=== PATIENT | male | born 1960 | race Caucasian/White ===

== ENCOUNTER 2018-02-11 09:04 | Inpatient (IN) | payer BC ==
[2018-02-11 09:24] LABS: ADD MAN DIFF? NO
[2018-02-11 09:35] LABS: WHITE BLOOD COUNT 13.6 10^3/ul (4.8-10.8)
[2018-02-11 09:35] LABS: ABNORMAL IP MESSAGE 1; HEMATOCRIT 16.7 % (42.0-52.0); MEAN CORPUSCULAR HEMOGLOBIN 29.4 pg (29.0-33.0); MEAN CORPUSCULAR HGB CONC 31.7 g/dl (32.0-37.0); MEAN CORPUSCULAR VOLUME 92.8 fl (82.0-101.0); MEAN PLATELET VOLUME 10.9 fl (7.4-10.4); PLATELET COUNT 80 10^3/UL (140-415); POSITIVE DIFF @See below
[2018-02-11] MEDS: SOD CHLORIDE 0.9% 1,000 ML IV (09:40)
[2018-02-11 09:47] LABS: HEMOGLOBIN 5.3 g/dl (14.0-18.0)
[2018-02-11 09:51] LABS: ALANINE AMINOTRANSFERASE 36 IU/L (13-69); ALBUMIN 2.5 g/dl (3.3-4.9); ALKALINE PHOSPHATASE 52 IU/L (42-121); ANION GAP 9 (8-16); ASPARTATE AMINO TRANSFERASE 24 IU/L (15-46); BILIRUBIN,INDIRECT 0.3 mg/dl (0-1.1); BILIRUBIN,TOTAL 0.3 mg/dl (0.2-1.3); BLOOD UREA NITROGEN 29 mg/dl (7-20); CALCIUM 7.4 mg/dl (8.4-10.2); CARBON DIOXIDE 25 mmol/L (21-31); CHLORIDE 101 mmol/L (97-110); CREATININE 0.86 mg/dl (0.61-1.24); GLUCOSE 115 mg/dl (70-220); POTASSIUM 4.1 mmol/L (3.5-5.1); SODIUM 131 mmol/L (135-144)
[2018-02-11 09:56] LABS: INR 3.78; PROTIME 38.5 Sec (11.9-14.9)
[2018-02-11] MEDS: SOD CHLORIDE 0.9% 250 ML IV (09:58)
[2018-02-11 10:03] LABS: B-TYPE NATRIURETIC PEPTIDE 492 PG/ML (0-125)
[2018-02-11 10:06] LABS: TROPONIN-I 0.169 ng/ml (0.000-0.120)
[2018-02-11 10:58] LABS: ANISOCYTOSIS 1+ (0-0); BAND NEUTROPHILS #M 0.2 10^3/ul (0.0-0.6); BAND NEUTROPHILS % (M) 2 % (0-4); BASOPHIL #M 0.1 10^3/ul (0.0-0.0); BASOPHILS % (M) 1 % (0-2); EOSINOPHILS % (M) 2 % (0-7); LYMPHOCYTES #M 0.1 10^3/ul (0.8-2.9); LYMPHOCYTES % (M) 1 % (15-51); MICROCYTOSIS 1+ (0-0); PLATELET ESTIMATE DECREASED; POIKILOCYTOSIS 1+ (0-0); POLYCHROMASIA 3+ (0-0); SEG NEUT #M 12.8 10^3/ul (1.6-7.5); SEGMENTED NEUTROPHILS (M) % 94 % (39-77); SMUDGE%M 5 % (0-0)
[2018-02-11] MEDS ORDERED: ACETAMINOPHEN 325 MG TAB PO (11:00)
[2018-02-11] MEDS ORDERED: ONDANSETRON 4 MG INJ IV (11:00)
[2018-02-11 12:27] LABS: ADD UMIC YES; UR ASCORBIC ACID NEGATIVE (NEGATIVE); UR BILIRUBIN (Dip) NEGATIVE (NEGATIVE); UR BLOOD (Dip) NEGATIVE (NEGATIVE); UR CLARITY CLEAR (CLEAR); UR COLOR YELLOW (YELLOW); UR GLUCOSE (Dip) NEGATIVE (NEGATIVE); UR KETONES (Dip) NEGATIVE (NEGATIVE); UR LEUKOCYTE ESTERASE (Dip) TRACE Leu/ul (NEGATIVE); UR NITRITE (Dip) NEGATIVE (NEGATIVE); UR RBC 0 /HPF (0-5); UR SPECIFIC GRAVITY (Dip) 1.016 (1.003-1.030); UR TOTAL PROTEIN (Dip) NEGATIVE (NEGATIVE); UR UROBILINOGEN (Dip) NEGATIVE (NEGATIVE); UR WBC 7 /HPF (0-5)
[2018-02-11] MEDS: D5W-0.45 NACL + KCL 20 MEQ 1,000 ML IV ×2 (14:30→20:15)
[2018-02-11] MEDS: PANTOPRAZOLE 40 MG INJ IV (17:00)
[2018-02-11 20:07] LABS: WHITE BLOOD COUNT 11.1 10^3/ul (4.8-10.8)
[2018-02-11 20:07] LABS: ABNORMAL IP MESSAGE 1; HEMATOCRIT 18.8 % (42.0-52.0); MEAN CORPUSCULAR HEMOGLOBIN 29.7 pg (29.0-33.0); MEAN CORPUSCULAR HGB CONC 33.5 g/dl (32.0-37.0); MEAN CORPUSCULAR VOLUME 88.7 fl (82.0-101.0); MEAN PLATELET VOLUME 12.1 fl (7.4-10.4); PLATELET COUNT 74 10^3/UL (140-415); POSITIVE DIFF @See below; RED BLOOD COUNT 2.12 10^6/ul (4.70-6.10); RED CELL DISTRIBUTION WIDTH 15.5 % (11.5-14.5)
[2018-02-11 20:16] LABS: ADD MAN DIFF? YES; HEMOGLOBIN 6.3 g/dl (14.0-18.0)
[2018-02-11 20:37] LABS: TROPONIN-I 0.122 ng/ml (0.000-0.120)
[2018-02-11 21:35] LABS: BURR CELLS 1+; EOSINOPHILS # 0.1 10^3/ul (0.0-0.5); EOSINOPHILS % (M) 1 % (0.0-7.0); HYPOCHROMASIA 1+ (0-0); LYMPHOCYTES # 0.4 10^3/ul (0.8-2.9); LYMPHOCYTES #M 0.4 10^3/ul (0.8-2.9); LYMPHOCYTES % (M) 4 % (15-51); MONOCYTE # 0.4 10^3/ul (0.3-0.9); MONOCYTE #M 0.4 10^3/ul (0.3-0.9); MONOCYTES % (M) 4 % (0-11); SEGMENTED NEUTROPHILS (M) % 91 % (39-77)
[2018-02-12 01:27] LABS: TROPONIN-I 0.088 ng/ml (0.000-0.120)
[2018-02-12] MEDS: PANTOPRAZOLE 40 MG INJ IV (05:44)
[2018-02-12 06:49] LABS: ADD MAN DIFF? NO
[2018-02-12 06:55] LABS: ABNORMAL IP MESSAGE 1; BASOPHIL # 0.1 10^3/ul (0.0-0.1); BASOPHILS % 0.5 % (0.0-2.0); EOSINOPHILS # 0.2 10^3/ul (0.0-0.5); EOSINOPHILS % 1.8 % (0.0-7.0); LYMPHOCYTES # 0.4 10^3/ul (0.8-2.9); LYMPHOCYTES % 4.4 % (15.0-51.0); MEAN CORPUSCULAR HEMOGLOBIN 29.8 pg (29.0-33.0); MEAN CORPUSCULAR HGB CONC 33.3 g/dl (32.0-37.0); MEAN CORPUSCULAR VOLUME 89.4 fl (82.0-101.0); MEAN PLATELET VOLUME 11.9 fl (7.4-10.4); MONOCYTE # 0.9 10^3/ul (0.3-0.9); MONOCYTES % 9.6 % (0.0-11.0); NEUTROPHIL # 7.6 10^3/ul (1.6-7.5); NEUTROPHILS % 83.2 % (39.0-77.0); PLATELET COUNT 63 10^3/UL (140-415); POSITIVE DIFF @See below; RED BLOOD COUNT 2.35 10^6/ul (4.70-6.10); RED CELL DISTRIBUTION WIDTH 15.5 % (11.5-14.5)
[2018-02-12 06:55] LABS: WHITE BLOOD COUNT 9.1 10^3/ul (4.8-10.8)
[2018-02-12 07:36] LABS: INR 4.59; PT RATIO 3.5
[2018-02-12 07:41] LABS: TROPONIN-I 0.066 ng/ml (0.000-0.120)
[2018-02-12 07:52] LABS: ANION GAP 10 (8-16); BLOOD UREA NITROGEN 31 mg/dl (7-20); CALCIUM 7.5 mg/dl (8.4-10.2); CARBON DIOXIDE 23 mmol/L (21-31); CHLORIDE 105 mmol/L (97-110); CREATININE 0.74 mg/dl (0.61-1.24); GLUCOSE 101 mg/dl (70-220); PARTIAL THROMBOPLASTIN TIME 94.9 Sec (25.0-35.0); POTASSIUM 4.3 mmol/L (3.5-5.1); SODIUM 134 mmol/L (135-144)
[2018-02-12] MEDS: D5W-0.45 NACL + KCL 20 MEQ 1,000 ML IV ×2 (09:46→20:30)
[2018-02-12] MEDS ORDERED: PHYTONADIONE 10 MG/ML INJ SC (18:30)
[2018-02-12 20:22] LABS: HEMATOCRIT 20.7 % (42.0-52.0)
[2018-02-12 20:31] LABS: IMMEDIATE SPIN CROSSMATCH 1 9
[2018-02-13 01:11] LABS: IMMEDIATE SPIN CROSSMATCH 1
[2018-02-13] MEDS: PANTOPRAZOLE 40 MG INJ IV (06:00)
[2018-02-13] MEDS: D5W-0.45 NACL + KCL 20 MEQ 1,000 ML IV ×2 (06:01→16:30)
[2018-02-13 06:52] LABS: ADD MAN DIFF? NO
[2018-02-13 07:06] LABS: ABNORMAL IP MESSAGE 1; BASOPHILS % 0.4 % (0.0-2.0); EOSINOPHILS # 0.2 10^3/ul (0.0-0.5); EOSINOPHILS % 2.1 % (0.0-7.0); HEMATOCRIT 19.4 % (42.0-52.0); LYMPHOCYTES # 0.4 10^3/ul (0.8-2.9); LYMPHOCYTES % 5.3 % (15.0-51.0); MEAN CORPUSCULAR HEMOGLOBIN 30.2 pg (29.0-33.0); MEAN CORPUSCULAR VOLUME 91.5 fl (82.0-101.0); MEAN PLATELET VOLUME 12.4 fl (7.4-10.4); MONOCYTE # 0.8 10^3/ul (0.3-0.9); MONOCYTES % 11.9 % (0.0-11.0); NEUTROPHIL # 5.6 10^3/ul (1.6-7.5); NEUTROPHILS % 79.9 % (39.0-77.0); PLATELET COUNT 56 10^3/UL (140-415); POSITIVE DIFF @See below; RED BLOOD COUNT 2.12 10^6/ul (4.70-6.10); RED CELL DISTRIBUTION WIDTH 15.5 % (11.5-14.5)
[2018-02-13 07:17] LABS: INR 1.62; PROTIME 19.6 Sec (11.9-14.9); PT RATIO 1.5
[2018-02-13 07:19] LABS: HEMOGLOBIN 6.4 g/dl (14.0-18.0); PARTIAL THROMBOPLASTIN TIME 52.2 Sec (25.0-35.0); PATH REVIEW? YES
[2018-02-13 07:53] LABS: ANION GAP 9 (8-16); BLOOD UREA NITROGEN 27 mg/dl (7-20); CALCIUM 7.6 mg/dl (8.4-10.2); CARBON DIOXIDE 27 mmol/L (21-31); CHLORIDE 104 mmol/L (97-110); CREATININE 0.78 mg/dl (0.61-1.24); GLUCOSE 91 mg/dl (70-220); POTASSIUM 3.8 mmol/L (3.5-5.1); SODIUM 136 mmol/L (135-144)
[2018-02-13 09:21] LABS: ANISOCYTOSIS 1+ (0-0); BAND NEUTROPHILS #M 0.3 10^3/ul (0.0-0.6); BAND NEUTROPHILS % (M) 5 % (0-4); BASOPHILS % (M) 1 % (0-2); EOSINOPHILS % (M) 2 % (0-7); LYMPHOCYTES #M 0.3 10^3/ul (0.8-2.9); LYMPHOCYTES % (M) 5 % (15-51); MICROCYTOSIS 1+ (0-0); MONOCYTE #M 0.2 10^3/ul (0.3-0.9); MONOCYTES % (M) 4 % (0-11); PLATELET ESTIMATE SIG DECREASED; POLYCHROMASIA 1+ (0-0); SEG NEUT #M 5.8 10^3/ul (1.6-7.5); SEGMENTED NEUTROPHILS (M) % 83 % (39-77); SMUDGE%M 28 % (0-0); SPHEROCYTES 1+ (0-0)
[2018-02-13 15:38] LABS: HEMOGLOBIN 7.5 g/dl (14.0-18.0)
[2018-02-14] MEDS: D5W-0.45 NACL + KCL 20 MEQ 1,000 ML IV ×3 (02:17→21:48)
[2018-02-14] MEDS: PANTOPRAZOLE 40 MG INJ IV (06:19)
[2018-02-14 06:41] LABS: ADD MAN DIFF? NO
[2018-02-14 06:56] LABS: WHITE BLOOD COUNT 7.6 10^3/ul (4.8-10.8)
[2018-02-14 06:56] LABS: ABNORMAL IP MESSAGE 1; BASOPHIL # 0.1 10^3/ul (0.0-0.1); BASOPHILS % 0.8 % (0.0-2.0); EOSINOPHILS # 0.1 10^3/ul (0.0-0.5); EOSINOPHILS % 1.7 % (0.0-7.0); HEMATOCRIT 17.8 % (42.0-52.0); LYMPHOCYTES # 0.4 10^3/ul (0.8-2.9); MEAN CORPUSCULAR HEMOGLOBIN 29.9 pg (29.0-33.0); MEAN CORPUSCULAR HGB CONC 32.6 g/dl (32.0-37.0); MEAN CORPUSCULAR VOLUME 91.8 fl (82.0-101.0); MEAN PLATELET VOLUME 11.9 fl (7.4-10.4); MONOCYTE # 0.9 10^3/ul (0.3-0.9); MONOCYTES % 12.3 % (0.0-11.0); NEUTROPHILS % 79.5 % (39.0-77.0); PLATELET COUNT 61 10^3/UL (140-415); POSITIVE DIFF @See below; RED BLOOD COUNT 1.94 10^6/ul (4.70-6.10); RED CELL DISTRIBUTION WIDTH 15.6 % (11.5-14.5)
[2018-02-14 07:06] LABS: HEMOGLOBIN 5.8 g/dl (14.0-18.0); INR 2.09; PT RATIO 1.9
[2018-02-14 07:07] LABS: PARTIAL THROMBOPLASTIN TIME 54.8 Sec (25.0-35.0)
[2018-02-14 07:17] LABS: ANION GAP 8 (8-16); BLOOD UREA NITROGEN 32 mg/dl (7-20); CALCIUM 7.3 mg/dl (8.4-10.2); CARBON DIOXIDE 24 mmol/L (21-31); CHLORIDE 109 mmol/L (97-110); CREATININE 0.67 mg/dl (0.61-1.24); GLUCOSE 100 mg/dl (70-220); POTASSIUM 3.7 mmol/L (3.5-5.1); SODIUM 137 mmol/L (135-144)
[2018-02-14] MEDS ORDERED: ACETAMINOPHEN 650 MG SUPP PR (07:30)
[2018-02-14 08:26] LABS: ALANINE AMINOTRANSFERASE 26 IU/L (13-69); ALBUMIN 2.1 g/dl (3.3-4.9); ALKALINE PHOSPHATASE 40 IU/L (42-121); ASPARTATE AMINO TRANSFERASE 21 IU/L (15-46); BILIRUBIN,INDIRECT 0.3 mg/dl (0-1.1); BILIRUBIN,TOTAL 0.3 mg/dl (0.2-1.3); TOTAL PROTEIN 4.7 g/dl (6.1-8.1)
[2018-02-14 08:27] LABS: AMYLASE < 30 U/L (11-123)
[2018-02-14] MEDS: morphine 2 MG INJ IV ×2 (11:51→22:28)
[2018-02-14 20:29] LABS: ADD UMIC NO; UR ASCORBIC ACID NEGATIVE (NEGATIVE); UR BILIRUBIN (Dip) NEGATIVE (NEGATIVE); UR BLOOD (Dip) NEGATIVE (NEGATIVE); UR CLARITY CLEAR (CLEAR); UR COLOR YELLOW (YELLOW); UR GLUCOSE (Dip) NEGATIVE (NEGATIVE); UR KETONES (Dip) NEGATIVE (NEGATIVE); UR LEUKOCYTE ESTERASE (Dip) NEGATIVE Leu/ul (NEGATIVE); UR NITRITE (Dip) NEGATIVE (NEGATIVE); UR SPECIFIC GRAVITY (Dip) 1.021 (1.003-1.030); UR TOTAL PROTEIN (Dip) NEGATIVE (NEGATIVE); UR UROBILINOGEN (Dip) 1+ mg/dL (NEGATIVE)
[2018-02-14] MEDS: ZOLPIDEM 5 MG TAB PO (22:28)
[2018-02-15] MEDS: morphine 2 MG INJ IV ×2 (03:03→10:05)
[2018-02-15] MEDS: PANTOPRAZOLE 40 MG INJ IV ×2 (06:30→06:36)
[2018-02-15] MEDS: D5W-0.45 NACL + KCL 20 MEQ 1,000 ML IV ×2 (06:40→18:30)
[2018-02-15 06:55] LABS: ADD MAN DIFF? NO
[2018-02-15 07:00] LABS: ABNORMAL IP MESSAGE 1; BASOPHIL # 0.1 10^3/ul (0.0-0.1); BASOPHILS % 0.7 % (0.0-2.0); EOSINOPHILS % 0.2 % (0.0-7.0); HEMATOCRIT 21.8 % (42.0-52.0); HEMOGLOBIN 7.1 g/dl (14.0-18.0); LYMPHOCYTES # 0.4 10^3/ul (0.8-2.9); LYMPHOCYTES % 3.1 % (15.0-51.0); MEAN CORPUSCULAR HEMOGLOBIN 30.3 pg (29.0-33.0); MEAN CORPUSCULAR HGB CONC 32.6 g/dl (32.0-37.0); MEAN CORPUSCULAR VOLUME 93.2 fl (82.0-101.0); MEAN PLATELET VOLUME 11.9 fl (7.4-10.4); MONOCYTES % 9.1 % (0.0-11.0); NEUTROPHIL # 9.7 10^3/ul (1.6-7.5); NEUTROPHILS % 86.1 % (39.0-77.0); PLATELET COUNT 43 10^3/UL (140-415); POSITIVE DIFF @See below; RED BLOOD COUNT 2.34 10^6/ul (4.70-6.10); RED CELL DISTRIBUTION WIDTH 16.3 % (11.5-14.5)
[2018-02-15 07:00] LABS: WHITE BLOOD COUNT 11.2 10^3/ul (4.8-10.8)
[2018-02-15 07:19] LABS: INR 2.71; PROTIME 29.5 Sec (11.9-14.9); PT RATIO 2.3
[2018-02-15 07:21] LABS: PARTIAL THROMBOPLASTIN TIME 64.8 Sec (25.0-35.0)
[2018-02-15 07:28] LABS: ANION GAP 11 (8-16); BLOOD UREA NITROGEN 29 mg/dl (7-20); CALCIUM 7.4 mg/dl (8.4-10.2); CARBON DIOXIDE 22 mmol/L (21-31); CHLORIDE 108 mmol/L (97-110); CREATININE 0.68 mg/dl (0.61-1.24); GLUCOSE 132 mg/dl (70-220); POTASSIUM 3.9 mmol/L (3.5-5.1); SODIUM 137 mmol/L (135-144)
[2018-02-15] MEDS: PHYTONADIONE 5 MG in DEXTROSE 5% 50 ML IVPB (09:57)
[2018-02-15 13:09] LABS: IMMEDIATE SPIN CROSSMATCH 1 4
[2018-02-15] MEDS ORDERED: PHYTONADIONE 10 MG/ML INJ SC (15:30)
[2018-02-15] MEDS ORDERED: ACETAMINOPHEN 325 MG TAB PO (22:00)
[2018-02-15] MEDS: ZOLPIDEM 5 MG TAB PO ×2 (22:19→23:46)
[2018-02-15] MEDS: HYDROCODONE/APAP (5/325) TAB PO (22:20)
[2018-02-15 23:16] LABS: IMMEDIATE SPIN CROSSMATCH 1
[2018-02-16] MEDS: D5W-0.45 NACL + KCL 20 MEQ 1,000 ML IV ×3 (02:15→20:27)
[2018-02-16 06:11] LABS: ADD MAN DIFF? NO
[2018-02-16 06:19] LABS: ABNORMAL IP MESSAGE 1; BASOPHIL # 0.1 10^3/ul (0.0-0.1); BASOPHILS % 0.6 % (0.0-2.0); EOSINOPHILS # 0.1 10^3/ul (0.0-0.5); EOSINOPHILS % 0.6 % (0.0-7.0); HEMATOCRIT 19.4 % (42.0-52.0); LYMPHOCYTES # 0.5 10^3/ul (0.8-2.9); LYMPHOCYTES % 4.9 % (15.0-51.0); MEAN CORPUSCULAR HEMOGLOBIN 29.7 pg (29.0-33.0); MEAN CORPUSCULAR HGB CONC 32.5 g/dl (32.0-37.0); MEAN CORPUSCULAR VOLUME 91.5 fl (82.0-101.0); MEAN PLATELET VOLUME 11.8 fl (7.4-10.4); MONOCYTE # 1.1 10^3/ul (0.3-0.9); MONOCYTES % 11.2 % (0.0-11.0); NEUTROPHIL # 7.7 10^3/ul (1.6-7.5); NEUTROPHILS % 81.6 % (39.0-77.0); NUCLEATED RED BLOOD CELLS% 0.2 /100WBC (0.0-0.0); POSITIVE DIFF @See below; RED BLOOD COUNT 2.12 10^6/ul (4.70-6.10); RED CELL DISTRIBUTION WIDTH 16.5 % (11.5-14.5)
[2018-02-16 06:19] LABS: WHITE BLOOD COUNT 9.4 10^3/ul (4.8-10.8)
[2018-02-16 06:37] LABS: INR 1.43; PROTIME 17.7 Sec (11.9-14.9); PT RATIO 1.4
[2018-02-16 06:47] LABS: HEMOGLOBIN 6.3 g/dl (14.0-18.0)
[2018-02-16 06:48] LABS: PLATELET COUNT 29 10^3/UL (140-415)
[2018-02-16 06:49] LABS: ANION GAP 11 (8-16); BLOOD UREA NITROGEN 32 mg/dl (7-20); CALCIUM 7.3 mg/dl (8.4-10.2); CARBON DIOXIDE 21 mmol/L (21-31); CHLORIDE 108 mmol/L (97-110); CREATININE 0.72 mg/dl (0.61-1.24); GLUCOSE 119 mg/dl (70-220); SODIUM 136 mmol/L (135-144)
[2018-02-16] MEDS: SOD CHLORIDE 0.9% 250 ML IV* (08:22)
[2018-02-16 09:34] LABS: ANISOCYTOSIS 1+ (0-0); BAND NEUTROPHILS #M 0.4 10^3/ul (0.0-0.6); BAND NEUTROPHILS % (M) 5 % (0-4); GIANT THROMBO% (M) 1 % (0-0); LYMPHOCYTES % (M) 1 % (15-51); MICROCYTOSIS 1+ (0-0); MONOCYTE #M 0.8 10^3/ul (0.3-0.9); MONOCYTES % (M) 9 % (0-11); MYELOCYTES #M 0.1 10^3/ul (0.0-0.0); MYELOCYTES % (M) 2 % (0-0); PLATELET ESTIMATE SIG DECREASED; POLYCHROMASIA 2+ (0-0); SEG NEUT #M 7.8 10^3/ul (1.6-7.5); SEGMENTED NEUTROPHILS (M) % 83 % (39-77); SMUDGE%M 3 % (0-0)
[2018-02-16] MEDS: ZOLPIDEM 5 MG TAB PO (20:26)
[2018-02-17] MEDS: HYDROCODONE/APAP (5/325) TAB PO (00:39)
[2018-02-17] MEDS: PANTOPRAZOLE 40 MG INJ IV (05:55)
[2018-02-17 07:12] LABS: ADD MAN DIFF? NO
[2018-02-17 07:17] LABS: WHITE BLOOD COUNT 15.3 10^3/ul (4.8-10.8)
[2018-02-17 07:17] LABS: ABNORMAL IP MESSAGE 1; BASOPHIL # 0.1 10^3/ul (0.0-0.1); BASOPHILS % 0.5 % (0.0-2.0); EOSINOPHILS % 0.1 % (0.0-7.0); HEMATOCRIT 26.3 % (42.0-52.0); HEMOGLOBIN 8.7 g/dl (14.0-18.0); LYMPHOCYTES # 0.4 10^3/ul (0.8-2.9); LYMPHOCYTES % 2.4 % (15.0-51.0); MEAN CORPUSCULAR HEMOGLOBIN 29.9 pg (29.0-33.0); MEAN CORPUSCULAR HGB CONC 33.1 g/dl (32.0-37.0); MEAN CORPUSCULAR VOLUME 90.4 fl (82.0-101.0); MEAN PLATELET VOLUME 13.2 fl (7.4-10.4); MONOCYTE # 1.2 10^3/ul (0.3-0.9); MONOCYTES % 8.1 % (0.0-11.0); NEUTROPHIL # 13.5 10^3/ul (1.6-7.5); NUCLEATED RED BLOOD CELLS% 0.2 /100WBC (0.0-0.0); PLATELET COUNT 44 10^3/UL (140-415); POSITIVE DIFF @See below; RED BLOOD COUNT 2.91 10^6/ul (4.70-6.10); RED CELL DISTRIBUTION WIDTH 17.2 % (11.5-14.5)
[2018-02-17 07:30] LABS: INR 1.42; PROTIME 17.6 Sec (11.9-14.9); PT RATIO 1.4
[2018-02-17 07:31] LABS: PARTIAL THROMBOPLASTIN TIME 38.6 Sec (25.0-35.0)
[2018-02-17 08:01] LABS: ANION GAP 12 (8-16); BLOOD UREA NITROGEN 26 mg/dl (7-20); CALCIUM 7.3 mg/dl (8.4-10.2); CARBON DIOXIDE 22 mmol/L (21-31); CHLORIDE 105 mmol/L (97-110); GLUCOSE 137 mg/dl (70-220); POTASSIUM 3.9 mmol/L (3.5-5.1); SODIUM 135 mmol/L (135-144)
[2018-02-17] MEDS: D5W-0.45 NACL + KCL 20 MEQ 1,000 ML IV ×3 (08:28→19:48)
[2018-02-17 12:38] LABS: FOLATE 12.8 ng/ml (2.8-20.0)
[2018-02-17] MEDS ORDERED: VANCOMYCIN IV PER PHARMACY XX (15:00)
[2018-02-17] MEDS: SOD CHLORIDE 0.9% 500 ML IV ×2 (15:16→17:43)
[2018-02-17] MEDS: CEFTRIAXONE 1 GM/50 ML (PMX) 50 ML IVPB (17:15)
[2018-02-17] MEDS ORDERED: VANCOMYCIN 1 GM (PMX) 250 ML IVPB (18:00)
[2018-02-17] MEDS: VANCOMYCIN 1.25 GM in SOD CHLORIDE 0.9% 250 ML IVPB (18:43)
[2018-02-17] MEDS: ZOLPIDEM 5 MG TAB PO ×2 (20:20→20:54)
[2018-02-17 22:46] LABS: ADD UMIC YES; UR ASCORBIC ACID NEGATIVE (NEGATIVE); UR BACTERIA FEW /HPF (NONE SEEN); UR BILIRUBIN (Dip) NEGATIVE (NEGATIVE); UR BLOOD (Dip) 1+ mg/dL (NEGATIVE); UR CLARITY SLIGHTLY CLOUDY (CLEAR); UR COLOR YELLOW (YELLOW); UR GLUCOSE (Dip) NEGATIVE (NEGATIVE); UR KETONES (Dip) NEGATIVE (NEGATIVE); UR LEUKOCYTE ESTERASE (Dip) NEGATIVE Leu/ul (NEGATIVE); UR NITRITE (Dip) NEGATIVE (NEGATIVE); UR RBC 1 /HPF (0-5); UR SPECIFIC GRAVITY (Dip) 1.014 (1.003-1.030); UR TOTAL PROTEIN (Dip) NEGATIVE (NEGATIVE); UR UROBILINOGEN (Dip) NEGATIVE (NEGATIVE); UR WBC 1 /HPF (0-5)
[2018-02-18] MEDS: VANCOMYCIN 1 GM 250 ML IVPB ×3 (03:59→16:01)
[2018-02-18] MEDS: PANTOPRAZOLE 40 MG INJ IV (06:07)
[2018-02-18] MEDS: D5W-0.45 NACL + KCL 20 MEQ 1,000 ML IV ×2 (06:30→16:01)
[2018-02-18 08:09] LABS: ADD MAN DIFF? NO
[2018-02-18 08:13] LABS: ABNORMAL IP MESSAGE 1; BASOPHIL # 0.1 10^3/ul (0.0-0.1); BASOPHILS % 0.6 % (0.0-2.0); EOSINOPHILS # 0.1 10^3/ul (0.0-0.5); EOSINOPHILS % 0.7 % (0.0-7.0); HEMATOCRIT 23.6 % (42.0-52.0); HEMOGLOBIN 7.7 g/dl (14.0-18.0); LYMPHOCYTES # 0.4 10^3/ul (0.8-2.9); MEAN CORPUSCULAR HEMOGLOBIN 29.6 pg (29.0-33.0); MEAN CORPUSCULAR HGB CONC 32.6 g/dl (32.0-37.0); MEAN CORPUSCULAR VOLUME 90.8 fl (82.0-101.0); MEAN PLATELET VOLUME 12.3 fl (7.4-10.4); MONOCYTES % 5.5 % (0.0-11.0); NEUTROPHIL # 15.8 10^3/ul (1.6-7.5); NEUTROPHILS % 90.4 % (39.0-77.0); NUCLEATED RED BLOOD CELLS% 0.1 /100WBC (0.0-0.0); POSITIVE DIFF @See below; RED CELL DISTRIBUTION WIDTH 17.2 % (11.5-14.5)
[2018-02-18 08:13] LABS: WHITE BLOOD COUNT 17.5 10^3/ul (4.8-10.8)
[2018-02-18 08:18] LABS: PLATELET COUNT 33 10^3/UL (140-415)
[2018-02-18 08:28] LABS: LACTIC ACID 1.9 mmol/L (0.5-2.0)
[2018-02-18 08:30] LABS: ALANINE AMINOTRANSFERASE 21 IU/L (13-69); ALBUMIN 2.1 g/dl (3.3-4.9); ALBUMIN/GLOBULIN RATIO 0.77; ALKALINE PHOSPHATASE 54 IU/L (42-121); ANION GAP 10 (8-16); ASPARTATE AMINO TRANSFERASE 22 IU/L (15-46); BILIRUBIN,INDIRECT 0.3 mg/dl (0-1.1); BILIRUBIN,TOTAL 0.3 mg/dl (0.2-1.3); BLOOD UREA NITROGEN 20 mg/dl (7-20); CALCIUM 7.1 mg/dl (8.4-10.2); CARBON DIOXIDE 20 mmol/L (21-31); CHLORIDE 104 mmol/L (97-110); CREATININE 0.68 mg/dl (0.61-1.24); GLUCOSE 126 mg/dl (70-220); SODIUM 130 mmol/L (135-144); TOTAL PROTEIN 4.8 g/dl (6.1-8.1)
[2018-02-18 08:31] LABS: INR 1.59; PROTIME 19.3 Sec (11.9-14.9); PT RATIO 1.5
[2018-02-18 08:32] LABS: PARTIAL THROMBOPLASTIN TIME 44.9 Sec (25.0-35.0)
[2018-02-18 08:55] LABS: LACTATE DEHYDROGENASE 917 IU/L (313-618)
[2018-02-18] MEDS: HYDROCODONE/APAP (5/325) TAB PO ×2 (09:38→21:29)
[2018-02-18] MEDS: CEFTRIAXONE 1 GM/50 ML (PMX) 50 ML IVPB (14:48)
[2018-02-18] MEDS ORDERED: EPHEDrine SULFATE 50 MG/5 ML SYG IV (17:30)
[2018-02-18] MEDS ORDERED: METOCLOPRAMIDE 10 MG INJ IV (17:30)
[2018-02-18] MEDS ORDERED: HYDROmorphONE 1 MG/5 ML IV SYRINGE IV (17:30)
[2018-02-18] MEDS ORDERED: MIDAZOLAM 1 MG/ML 2 ML INJ IV (17:30)
[2018-02-18] MEDS ORDERED: LABETALOL HCL 20MG INJ IV (17:30)
[2018-02-18] MEDS ORDERED: MEPERIDINE 25 MG INJ IV (17:30)
[2018-02-18] MEDS ORDERED: DIPHENHYDRAMINE 50 MG INJ IV (17:30)
[2018-02-18] MEDS ORDERED: FENTAnyl 50 MCG/ML VIAL IV ×2 (17:30)
[2018-02-18] MEDS ORDERED: ONDANSETRON 4 MG INJ IV (17:30)
[2018-02-18] MEDS ORDERED: hydrALAzine 20 MG INJ IV (17:30)
[2018-02-18] MEDS: PROPOFOL 20 ML (19:52)
[2018-02-18] MEDS: LIDOCAINE 2% (SDV) 5 ML INJ (19:52)
[2018-02-18] MEDS: ZOLPIDEM 5 MG TAB PO (23:31)
[2018-02-19] MEDS: D5W-0.45 NACL + KCL 20 MEQ 1,000 ML IV ×4 (02:30→21:30)
[2018-02-19 04:01] LABS: ADD MAN DIFF? NO
[2018-02-19 04:10] LABS: WHITE BLOOD COUNT 10.2 10^3/ul (4.8-10.8)
[2018-02-19 04:10] LABS: ABNORMAL IP MESSAGE 1; BASOPHIL # 0.1 10^3/ul (0.0-0.1); BASOPHILS % 0.9 % (0.0-2.0); EOSINOPHILS # 0.3 10^3/ul (0.0-0.5); EOSINOPHILS % 3.3 % (0.0-7.0); HEMATOCRIT 17.7 % (42.0-52.0); LYMPHOCYTES # 0.3 10^3/ul (0.8-2.9); LYMPHOCYTES % 3.2 % (15.0-51.0); MEAN CORPUSCULAR HEMOGLOBIN 30.4 pg (29.0-33.0); MEAN CORPUSCULAR HGB CONC 32.8 g/dl (32.0-37.0); MEAN CORPUSCULAR VOLUME 92.7 fl (82.0-101.0); MEAN PLATELET VOLUME 13.8 fl (7.4-10.4); MONOCYTE # 0.5 10^3/ul (0.3-0.9); MONOCYTES % 4.6 % (0.0-11.0); NEUTROPHIL # 8.9 10^3/ul (1.6-7.5); NEUTROPHILS % 87.3 % (39.0-77.0); NUCLEATED RED BLOOD CELLS% 0.2 /100WBC (0.0-0.0); PLATELET COUNT 32 10^3/UL (140-415); POSITIVE DIFF @See below; RED BLOOD COUNT 1.91 10^6/ul (4.70-6.10); RED CELL DISTRIBUTION WIDTH 17.9 % (11.5-14.5)
[2018-02-19 04:19] LABS: HEMOGLOBIN 5.8 g/dl (14.0-18.0)
[2018-02-19 04:20] LABS: ANION GAP 4 (8-16); BLOOD UREA NITROGEN 15 mg/dl (7-20); CALCIUM 6.8 mg/dl (8.4-10.2); CARBON DIOXIDE 21 mmol/L (21-31); CHLORIDE 112 mmol/L (97-110); CREATININE 0.68 mg/dl (0.61-1.24); GLUCOSE 95 mg/dl (70-220); POTASSIUM 3.9 mmol/L (3.5-5.1); SODIUM 133 mmol/L (135-144)
[2018-02-19 04:24] LABS: VANCOMYCIN,TROUGH 11.7 ug/ml (10.0-20.0)
[2018-02-19] MEDS: SOD CHLORIDE 0.9% 250 ML IV* (04:53)
[2018-02-19] MEDS: PANTOPRAZOLE 40 MG INJ IV (05:10)
[2018-02-19] MEDS: HYDROCODONE/APAP (5/325) TAB PO (05:10)
[2018-02-19] MEDS: VANCOMYCIN 1 GM 250 ML IVPB (05:10)
[2018-02-19 08:51] LABS: IMMEDIATE SPIN CROSSMATCH 1 3
[2018-02-19 15:29] LABS: RHEUMATOID FACTOR NEGATIVE (NEGATIVE)
[2018-02-19 16:51] LABS: HAPTOGLOBIN 252 mg/dL (43-212)
[2018-02-19] MEDS: ZOLPIDEM 5 MG TAB PO (22:27)
[2018-02-20] MEDS: D5W-0.45 NACL + KCL 20 MEQ 1,000 ML IV ×4 (05:21→21:03)
[2018-02-20] MEDS: PANTOPRAZOLE 40 MG INJ IV (05:22)
[2018-02-20] MEDS: HYDROCODONE/APAP (5/325) TAB PO ×2 (06:03→22:48)
[2018-02-20 06:48] LABS: ADD MAN DIFF? NO
[2018-02-20 08:41] LABS: ABNORMAL IP MESSAGE 1; BASOPHIL # 0.1 10^3/ul (0.0-0.1); BASOPHILS % 0.5 % (0.0-2.0); EOSINOPHILS # 0.3 10^3/ul (0.0-0.5); EOSINOPHILS % 2.4 % (0.0-7.0); HEMATOCRIT 21.3 % (42.0-52.0); LYMPHOCYTES # 0.5 10^3/ul (0.8-2.9); LYMPHOCYTES % 4.1 % (15.0-51.0); MEAN CORPUSCULAR HEMOGLOBIN 30.4 pg (29.0-33.0); MEAN CORPUSCULAR HGB CONC 32.9 g/dl (32.0-37.0); MEAN CORPUSCULAR VOLUME 92.6 fl (82.0-101.0); MEAN PLATELET VOLUME 11.8 fl (7.4-10.4); MONOCYTE # 0.6 10^3/ul (0.3-0.9); MONOCYTES % 5.1 % (0.0-11.0); NEUTROPHIL # 10.2 10^3/ul (1.6-7.5); NEUTROPHILS % 87.3 % (39.0-77.0); NUCLEATED RED BLOOD CELLS% 0.2 /100WBC (0.0-0.0); POSITIVE DIFF @See below; RED CELL DISTRIBUTION WIDTH 16.4 % (11.5-14.5)
[2018-02-20 08:41] LABS: WHITE BLOOD COUNT 11.7 10^3/ul (4.8-10.8)
[2018-02-20 09:02] LABS: ANION GAP 7 (8-16); BLOOD UREA NITROGEN 13 mg/dl (7-20); CALCIUM 6.8 mg/dl (8.4-10.2); CARBON DIOXIDE 21 mmol/L (21-31); CHLORIDE 111 mmol/L (97-110); CREATININE 0.65 mg/dl (0.61-1.24); GLUCOSE 96 mg/dl (70-220); POTASSIUM 3.6 mmol/L (3.5-5.1); SODIUM 135 mmol/L (135-144)
[2018-02-20 09:03] LABS: PLATELET COUNT 29 10^3/UL (140-415)
[2018-02-20 09:04] LABS: INR 2.19; PROTIME 24.9 Sec (11.9-14.9)
[2018-02-20 09:05] LABS: PARTIAL THROMBOPLASTIN TIME 62.5 Sec (25.0-35.0); PT RATIO 1.9
[2018-02-20 11:07] LABS: TYPE AND SCREEN 1
[2018-02-20] MEDS ORDERED: ONDANSETRON 4 MG TAB PO (13:00)
[2018-02-20] MEDS: TAMSULOSIN (SR) 0.4 MG CAP PO (20:46)
[2018-02-20] MEDS: ZOLPIDEM 5 MG TAB PO (21:00)
[2018-02-21] MEDS: D5W-0.45 NACL + KCL 20 MEQ 1,000 ML IV ×4 (04:30→18:44)
[2018-02-21 07:44] LABS: ADD MAN DIFF? NO
[2018-02-21 07:46] LABS: WHITE BLOOD COUNT 12.7 10^3/ul (4.8-10.8)
[2018-02-21 07:46] LABS: ABNORMAL IP MESSAGE 1; BASOPHILS % 0.3 % (0.0-2.0); EOSINOPHILS # 0.3 10^3/ul (0.0-0.5); EOSINOPHILS % 2.5 % (0.0-7.0); HEMATOCRIT 27.1 % (42.0-52.0); HEMOGLOBIN 8.8 g/dl (14.0-18.0); LYMPHOCYTES # 0.5 10^3/ul (0.8-2.9); LYMPHOCYTES % 3.6 % (15.0-51.0); MEAN CORPUSCULAR HEMOGLOBIN 29.9 pg (29.0-33.0); MEAN CORPUSCULAR HGB CONC 32.5 g/dl (32.0-37.0); MEAN CORPUSCULAR VOLUME 92.2 fl (82.0-101.0); MEAN PLATELET VOLUME 12.2 fl (7.4-10.4); MONOCYTE # 0.6 10^3/ul (0.3-0.9); MONOCYTES % 4.8 % (0.0-11.0); NEUTROPHIL # 11.2 10^3/ul (1.6-7.5); NEUTROPHILS % 88.2 % (39.0-77.0); NUCLEATED RED BLOOD CELLS% 0.2 /100WBC (0.0-0.0); PLATELET COUNT 55 10^3/UL (140-415); POSITIVE DIFF @See below; RED BLOOD COUNT 2.94 10^6/ul (4.70-6.10); RED CELL DISTRIBUTION WIDTH 16.5 % (11.5-14.5)
[2018-02-21] MEDS: PANTOPRAZOLE SODIUM 20 MG TABEC PO (07:56)
[2018-02-21 08:05] LABS: INR 1.93; PROTIME 22.5 Sec (11.9-14.9); PT RATIO 1.8
[2018-02-21 08:28] LABS: ANION GAP 8 (8-16); BLOOD UREA NITROGEN 10 mg/dl (7-20); CALCIUM 7.2 mg/dl (8.4-10.2); CARBON DIOXIDE 23 mmol/L (21-31); CHLORIDE 109 mmol/L (97-110); CREATININE 0.63 mg/dl (0.61-1.24); GLUCOSE 96 mg/dl (70-220); POTASSIUM 4.1 mmol/L (3.5-5.1); SODIUM 136 mmol/L (135-144)
[2018-02-21] MEDS: FERROUS SULFATE (EC) 325 MG TAB PO (08:43)
[2018-02-21 08:56] LABS: PROCALCITONIN 0.93 ng/mL (<0.10)
[2018-02-21] MEDS: HYDROCODONE/APAP (5/325) TAB PO ×2 (10:20→20:28)
[2018-02-21] MEDS: TAMSULOSIN (SR) 0.4 MG CAP PO (20:28)
[2018-02-22] MEDS: D5W-0.45 NACL + KCL 20 MEQ 1,000 ML IV ×2 (05:09→17:58)
[2018-02-22] MEDS: METOPROLOL (XL) 25 MG TAB PO ×2 (05:39→05:50)
[2018-02-22 05:58] LABS: ADD MAN DIFF? NO
[2018-02-22 06:03] LABS: ABNORMAL IP MESSAGE 1; BASOPHILS % 0.3 % (0.0-2.0); EOSINOPHILS # 0.1 10^3/ul (0.0-0.5); EOSINOPHILS % 0.8 % (0.0-7.0); HEMOGLOBIN 8.2 g/dl (14.0-18.0); LYMPHOCYTES # 0.4 10^3/ul (0.8-2.9); LYMPHOCYTES % 3.6 % (15.0-51.0); MEAN CORPUSCULAR HEMOGLOBIN 29.6 pg (29.0-33.0); MEAN CORPUSCULAR HGB CONC 32.8 g/dl (32.0-37.0); MEAN CORPUSCULAR VOLUME 90.3 fl (82.0-101.0); MEAN PLATELET VOLUME 12.5 fl (7.4-10.4); MONOCYTE # 0.5 10^3/ul (0.3-0.9); MONOCYTES % 4.2 % (0.0-11.0); NEUTROPHIL # 10.2 10^3/ul (1.6-7.5); NEUTROPHILS % 90.4 % (39.0-77.0); PLATELET COUNT 56 10^3/UL (140-415); POSITIVE DIFF @See below; RED BLOOD COUNT 2.77 10^6/ul (4.70-6.10); RED CELL DISTRIBUTION WIDTH 16.3 % (11.5-14.5)
[2018-02-22 06:03] LABS: WHITE BLOOD COUNT 11.3 10^3/ul (4.8-10.8)
[2018-02-22 06:23] LABS: INR 1.98; PT RATIO 1.8
[2018-02-22 06:33] LABS: ANION GAP 8 (8-16); BLOOD UREA NITROGEN 10 mg/dl (7-20); CALCIUM 6.8 mg/dl (8.4-10.2); CARBON DIOXIDE 21 mmol/L (21-31); CHLORIDE 108 mmol/L (97-110); CREATININE 0.58 mg/dl (0.61-1.24); GLUCOSE 111 mg/dl (70-220); POTASSIUM 4.4 mmol/L (3.5-5.1); SODIUM 133 mmol/L (135-144)
[2018-02-22] MEDS: PANTOPRAZOLE SODIUM 20 MG TABEC PO (06:52)
[2018-02-22] MEDS: FERROUS SULFATE (EC) 325 MG TAB PO (11:53)
[2018-02-22] MEDS: morphine 2 MG INJ IV (14:48)
[2018-02-22] MEDS: CIPROFLOXACIN 500 MG TAB PO (21:36)
[2018-02-22] MEDS: TAMSULOSIN (SR) 0.4 MG CAP PO (21:36)
[2018-02-23 05:19] LABS: ADD MAN DIFF? NO
[2018-02-23 05:28] LABS: WHITE BLOOD COUNT 8.9 10^3/ul (4.8-10.8)
[2018-02-23 05:28] LABS: ABNORMAL IP MESSAGE 1; BASOPHILS % 0.5 % (0.0-2.0); EOSINOPHILS # 0.2 10^3/ul (0.0-0.5); HEMATOCRIT 20.7 % (42.0-52.0); LYMPHOCYTES # 0.3 10^3/ul (0.8-2.9); LYMPHOCYTES % 3.3 % (15.0-51.0); MEAN CORPUSCULAR HEMOGLOBIN 29.2 pg (29.0-33.0); MEAN CORPUSCULAR HGB CONC 31.9 g/dl (32.0-37.0); MEAN CORPUSCULAR VOLUME 91.6 fl (82.0-101.0); MEAN PLATELET VOLUME 12.5 fl (7.4-10.4); MONOCYTE # 0.5 10^3/ul (0.3-0.9); MONOCYTES % 6.1 % (0.0-11.0); NEUTROPHIL # 7.8 10^3/ul (1.6-7.5); NEUTROPHILS % 87.5 % (39.0-77.0); PLATELET COUNT 40 10^3/UL (140-415); POSITIVE DIFF @See below; RED BLOOD COUNT 2.26 10^6/ul (4.70-6.10); RED CELL DISTRIBUTION WIDTH 16.3 % (11.5-14.5)
[2018-02-23] MEDS: CIPROFLOXACIN 500 MG TAB PO ×2 (05:43→17:43)
[2018-02-23 05:48] LABS: HEMOGLOBIN 6.6 g/dl (14.0-18.0)
[2018-02-23 05:56] LABS: ANION GAP 7 (8-16); BLOOD UREA NITROGEN 13 mg/dl (7-20); CALCIUM 7.1 mg/dl (8.4-10.2); CARBON DIOXIDE 24 mmol/L (21-31); CHLORIDE 110 mmol/L (97-110); CREATININE 0.58 mg/dl (0.61-1.24); GLUCOSE 84 mg/dl (70-220); POTASSIUM 4.1 mmol/L (3.5-5.1); SODIUM 137 mmol/L (135-144)
[2018-02-23] MEDS: D5W-0.45 NACL + KCL 20 MEQ 1,000 ML IV ×2 (06:30→13:44)
[2018-02-23] MEDS: PANTOPRAZOLE SODIUM 20 MG TABEC PO (08:02)
[2018-02-23] MEDS: FERROUS SULFATE (EC) 325 MG TAB PO (09:12)
[2018-02-23] MEDS: METOPROLOL (XL) 25 MG TAB PO (09:12)
[2018-02-23 09:47] LABS: IMMEDIATE SPIN CROSSMATCH 1 1
[2018-02-23] MEDS: HYDROCODONE/APAP (5/325) TAB PO (13:47)
[2018-02-23 16:22] LABS: HEMATOCRIT 24.5 % (42.0-52.0); HEMOGLOBIN 7.9 g/dl (14.0-18.0)
[2018-02-23] MEDS: MAGNESIUM SULFATE 2 GM/50 ML 50 ML IVPB (17:43)
[2018-02-23] MEDS: CALCIUM GLUCONATE 10% 2 GM in DEXTROSE 5% 100 ML IVPB (21:04)
[2018-02-23] MEDS: TAMSULOSIN (SR) 0.4 MG CAP PO (21:04)
[2018-02-24] MEDS: D5W-0.45 NACL + KCL 20 MEQ 1,000 ML IV ×3 (02:30→17:58)
[2018-02-24 05:05] LABS: ADD MAN DIFF? NO
[2018-02-24 05:13] LABS: ABNORMAL IP MESSAGE 1; BASOPHILS % 0.6 % (0.0-2.0); EOSINOPHILS # 0.2 10^3/ul (0.0-0.5); EOSINOPHILS % 3.1 % (0.0-7.0); HEMATOCRIT 23.7 % (42.0-52.0); HEMOGLOBIN 7.6 g/dl (14.0-18.0); LYMPHOCYTES # 0.3 10^3/ul (0.8-2.9); LYMPHOCYTES % 4.6 % (15.0-51.0); MEAN CORPUSCULAR HEMOGLOBIN 28.6 pg (29.0-33.0); MEAN CORPUSCULAR HGB CONC 32.1 g/dl (32.0-37.0); MEAN CORPUSCULAR VOLUME 89.1 fl (82.0-101.0); MONOCYTE # 0.5 10^3/ul (0.3-0.9); MONOCYTES % 7.1 % (0.0-11.0); NEUTROPHIL # 5.4 10^3/ul (1.6-7.5); NEUTROPHILS % 84.1 % (39.0-77.0); PLATELET COUNT 41 10^3/UL (140-415); POSITIVE DIFF @See below; RED BLOOD COUNT 2.66 10^6/ul (4.70-6.10); RED CELL DISTRIBUTION WIDTH 17.2 % (11.5-14.5)
[2018-02-24 05:13] LABS: WHITE BLOOD COUNT 6.5 10^3/ul (4.8-10.8)
[2018-02-24 05:26] LABS: ALBUMIN/GLOBULIN RATIO 0.64; ALKALINE PHOSPHATASE 81 IU/L (42-121); ANION GAP 7 (8-16); ASPARTATE AMINO TRANSFERASE 18 IU/L (15-46); BILIRUBIN,INDIRECT 0.5 mg/dl (0-1.1); BILIRUBIN,TOTAL 0.5 mg/dl (0.2-1.3); BLOOD UREA NITROGEN 7 mg/dl (7-20); CALCIUM 7.3 mg/dl (8.4-10.2); CARBON DIOXIDE 25 mmol/L (21-31); CHLORIDE 111 mmol/L (97-110); CREATININE 0.58 mg/dl (0.61-1.24); GLUCOSE 100 mg/dl (70-220); POTASSIUM 3.9 mmol/L (3.5-5.1); SODIUM 139 mmol/L (135-144); TOTAL PROTEIN 5.1 g/dl (6.1-8.1)
[2018-02-24] MEDS: CIPROFLOXACIN 500 MG TAB PO ×2 (06:12→17:57)
[2018-02-24 07:26] LABS: ALANINE AMINOTRANSFERASE 25 IU/L (13-69)
[2018-02-24] MEDS: FERROUS SULFATE (EC) 325 MG TAB PO (08:47)
[2018-02-24] MEDS: METOPROLOL (XL) 25 MG TAB PO (08:47)
[2018-02-24] MEDS: PANTOPRAZOLE SODIUM 20 MG TABEC PO (08:47)
[2018-02-24] MEDS: ONDANSETRON 4 MG INJ IV (09:36)
[2018-02-24] MEDS: NITROGLYCERIN (SL) 0.4 MG TAB SL ×2 (10:54→11:16)
[2018-02-24 11:42] LABS: TROPONIN-I 0.018 ng/ml (0.000-0.120)
[2018-02-24] MEDS: TAMSULOSIN (SR) 0.4 MG CAP PO (20:26)
[2018-02-25] MEDS: D5W-0.45 NACL + KCL 20 MEQ 1,000 ML IV ×2 (05:00→18:07)
[2018-02-25] MEDS: CIPROFLOXACIN 500 MG TAB PO ×2 (05:00→18:07)
[2018-02-25 05:49] LABS: ADD MAN DIFF? NO
[2018-02-25 06:06] LABS: ABNORMAL IP MESSAGE 1; BASOPHILS % 0.4 % (0.0-2.0); EOSINOPHILS # 0.2 10^3/ul (0.0-0.5); EOSINOPHILS % 2.6 % (0.0-7.0); HEMOGLOBIN 7.8 g/dl (14.0-18.0); LYMPHOCYTES # 0.3 10^3/ul (0.8-2.9); LYMPHOCYTES % 4.3 % (15.0-51.0); MEAN CORPUSCULAR HEMOGLOBIN 28.7 pg (29.0-33.0); MEAN CORPUSCULAR HGB CONC 31.2 g/dl (32.0-37.0); MEAN CORPUSCULAR VOLUME 91.9 fl (82.0-101.0); MEAN PLATELET VOLUME 12.1 fl (7.4-10.4); MONOCYTE # 0.5 10^3/ul (0.3-0.9); MONOCYTES % 7.1 % (0.0-11.0); NEUTROPHILS % 85.2 % (39.0-77.0); POSITIVE DIFF @See below; RED BLOOD COUNT 2.72 10^6/ul (4.70-6.10); RED CELL DISTRIBUTION WIDTH 16.7 % (11.5-14.5)
[2018-02-25 06:16] LABS: PT RATIO 1.9
[2018-02-25 06:18] LABS: PLATELET COUNT 38 10^3/UL (140-415)
[2018-02-25 06:22] LABS: INR 2.09; PARTIAL THROMBOPLASTIN TIME 52.8 Sec (25.0-35.0)
[2018-02-25 06:34] LABS: ANION GAP 5 (8-16); BLOOD UREA NITROGEN 5 mg/dl (7-20); CARBON DIOXIDE 25 mmol/L (21-31); CHLORIDE 111 mmol/L (97-110); CREATININE 0.61 mg/dl (0.61-1.24); GLUCOSE 88 mg/dl (70-220); POTASSIUM 4.1 mmol/L (3.5-5.1); SODIUM 137 mmol/L (135-144)
[2018-02-25] MEDS: METOPROLOL (XL) 25 MG TAB PO (09:55)
[2018-02-25] MEDS: PANTOPRAZOLE SODIUM 20 MG TABEC PO (09:55)
[2018-02-25] MEDS: FERROUS SULFATE (EC) 325 MG TAB PO (09:55)
[2018-02-25] MEDS: PHYTONADIONE 10 MG in DEXTROSE 5% 50 ML IVPB (09:56)
[2018-02-25] MEDS ORDERED: morphine LIQ (10 MG/5 ML) CUP PO (18:00)
[2018-02-25] MEDS: TAMSULOSIN (SR) 0.4 MG CAP PO (20:36)
[2018-02-26] MEDS: D5W-0.45 NACL + KCL 20 MEQ 1,000 ML IV ×2 (03:08→14:39)
[2018-02-26] MEDS: CIPROFLOXACIN 500 MG TAB PO ×2 (05:56→17:54)
[2018-02-26 08:20] LABS: ADD MAN DIFF? NO
[2018-02-26 08:27] LABS: WHITE BLOOD COUNT 6.2 10^3/ul (4.8-10.8)
[2018-02-26 08:27] LABS: ABNORMAL IP MESSAGE 1; BASOPHILS % 0.6 % (0.0-2.0); EOSINOPHILS # 0.1 10^3/ul (0.0-0.5); EOSINOPHILS % 1.6 % (0.0-7.0); HEMATOCRIT 25.2 % (42.0-52.0); HEMOGLOBIN 7.8 g/dl (14.0-18.0); LYMPHOCYTES # 0.2 10^3/ul (0.8-2.9); LYMPHOCYTES % 3.9 % (15.0-51.0); MEAN CORPUSCULAR HEMOGLOBIN 28.6 pg (29.0-33.0); MEAN CORPUSCULAR VOLUME 92.3 fl (82.0-101.0); MEAN PLATELET VOLUME 13.5 fl (7.4-10.4); MONOCYTE # 0.4 10^3/ul (0.3-0.9); MONOCYTES % 6.3 % (0.0-11.0); NEUTROPHIL # 5.4 10^3/ul (1.6-7.5); NEUTROPHILS % 87.1 % (39.0-77.0); PLATELET COUNT 66 10^3/UL (140-415); POSITIVE DIFF @See below; RED BLOOD COUNT 2.73 10^6/ul (4.70-6.10); RED CELL DISTRIBUTION WIDTH 16.8 % (11.5-14.5)
[2018-02-26 08:44] LABS: ANION GAP 7 (8-16); BLOOD UREA NITROGEN 4 mg/dl (7-20); CALCIUM 7.3 mg/dl (8.4-10.2); CARBON DIOXIDE 26 mmol/L (21-31); CHLORIDE 110 mmol/L (97-110); CREATININE 0.65 mg/dl (0.61-1.24); GLUCOSE 91 mg/dl (70-220); POTASSIUM 4.3 mmol/L (3.5-5.1); SODIUM 139 mmol/L (135-144)
[2018-02-26 08:45] LABS: INR 1.56; PT RATIO 1.5
[2018-02-26] MEDS: PANTOPRAZOLE SODIUM 20 MG TABEC PO (09:05)
[2018-02-26] MEDS: FERROUS SULFATE (EC) 325 MG TAB PO (09:05)
[2018-02-26] MEDS: METOPROLOL (XL) 25 MG TAB PO (09:08)
[2018-02-26 09:11] LABS: PARTIAL THROMBOPLASTIN TIME 40.5 Sec (23.0-35.0)
[2018-02-26] MEDS: ONDANSETRON 4 MG INJ IV (10:38)
[2018-02-26] MEDS: TAMSULOSIN (SR) 0.4 MG CAP PO (20:29)
[2018-02-27] MEDS: D5W-0.45 NACL + KCL 20 MEQ 1,000 ML IV ×3 (00:38→20:30)
[2018-02-27] MEDS: ZOLPIDEM 5 MG TAB PO ×2 (00:47→22:07)
[2018-02-27] MEDS: CIPROFLOXACIN 500 MG TAB PO ×2 (05:40→17:53)
[2018-02-27 06:47] LABS: ADD MAN DIFF? NO
[2018-02-27 06:49] LABS: ABNORMAL IP MESSAGE 1; BASOPHILS % 0.5 % (0.0-2.0); EOSINOPHILS # 0.1 10^3/ul (0.0-0.5); EOSINOPHILS % 1.9 % (0.0-7.0); HEMATOCRIT 26.8 % (42.0-52.0); HEMOGLOBIN 8.2 g/dl (14.0-18.0); LYMPHOCYTES # 0.3 10^3/ul (0.8-2.9); LYMPHOCYTES % 4.4 % (15.0-51.0); MEAN CORPUSCULAR HEMOGLOBIN 28.5 pg (29.0-33.0); MEAN CORPUSCULAR HGB CONC 30.6 g/dl (32.0-37.0); MEAN CORPUSCULAR VOLUME 93.1 fl (82.0-101.0); MEAN PLATELET VOLUME 12.5 fl (7.4-10.4); MONOCYTE # 0.4 10^3/ul (0.3-0.9); MONOCYTES % 5.9 % (0.0-11.0); NEUTROPHIL # 5.2 10^3/ul (1.6-7.5); NEUTROPHILS % 86.8 % (39.0-77.0); PLATELET COUNT 43 10^3/UL (140-415); POSITIVE DIFF @See below; RED BLOOD COUNT 2.88 10^6/ul (4.70-6.10); RED CELL DISTRIBUTION WIDTH 16.3 % (11.5-14.5)
[2018-02-27 06:49] LABS: WHITE BLOOD COUNT 5.9 10^3/ul (4.8-10.8)
[2018-02-27 07:50] LABS: ANION GAP 7 (8-16); BLOOD UREA NITROGEN 4 mg/dl (7-20); CALCIUM 7.3 mg/dl (8.4-10.2); CARBON DIOXIDE 25 mmol/L (21-31); CHLORIDE 109 mmol/L (97-110); CREATININE 0.62 mg/dl (0.61-1.24); GLUCOSE 92 mg/dl (70-220); POTASSIUM 4.3 mmol/L (3.5-5.1); SODIUM 137 mmol/L (135-144)
[2018-02-27] MEDS: FERROUS SULFATE (EC) 325 MG TAB PO (08:22)
[2018-02-27] MEDS: METOPROLOL (XL) 25 MG TAB PO (08:23)
[2018-02-27] MEDS: PANTOPRAZOLE SODIUM 20 MG TABEC PO (08:26)
[2018-02-27] MEDS: TAMSULOSIN (SR) 0.4 MG CAP PO (20:33)
[2018-02-28] MEDS: D5W-0.45 NACL + KCL 20 MEQ 1,000 ML IV ×3 (02:52→14:23)
[2018-02-28] MEDS: CIPROFLOXACIN 500 MG TAB PO ×2 (05:26→17:22)
[2018-02-28 05:38] LABS: ADD MAN DIFF? NO
[2018-02-28 05:42] LABS: ABNORMAL IP MESSAGE 1; BASOPHILS % 0.5 % (0.0-2.0); EOSINOPHILS # 0.2 10^3/ul (0.0-0.5); EOSINOPHILS % 2.5 % (0.0-7.0); HEMATOCRIT 26.6 % (42.0-52.0); HEMOGLOBIN 8.2 g/dl (14.0-18.0); LYMPHOCYTES # 0.3 10^3/ul (0.8-2.9); LYMPHOCYTES % 4.9 % (15.0-51.0); MEAN CORPUSCULAR HEMOGLOBIN 28.5 pg (29.0-33.0); MEAN CORPUSCULAR HGB CONC 30.8 g/dl (32.0-37.0); MEAN CORPUSCULAR VOLUME 92.4 fl (82.0-101.0); MEAN PLATELET VOLUME 12.8 fl (7.4-10.4); MONOCYTE # 0.5 10^3/ul (0.3-0.9); MONOCYTES % 7.9 % (0.0-11.0); NEUTROPHIL # 5.3 10^3/ul (1.6-7.5); NEUTROPHILS % 83.7 % (39.0-77.0); PLATELET COUNT 41 10^3/UL (140-415); POSITIVE DIFF @See below; RED BLOOD COUNT 2.88 10^6/ul (4.70-6.10); RED CELL DISTRIBUTION WIDTH 16.1 % (11.5-14.5)
[2018-02-28 05:42] LABS: WHITE BLOOD COUNT 6.3 10^3/ul (4.8-10.8)
[2018-02-28 06:14] LABS: ALANINE AMINOTRANSFERASE 28 IU/L (13-69); ALBUMIN 1.8 g/dl (3.3-4.9); ALBUMIN/GLOBULIN RATIO 0.54; ALKALINE PHOSPHATASE 84 IU/L (42-121); ANION GAP 9 (8-16); ASPARTATE AMINO TRANSFERASE 22 IU/L (15-46); BILIRUBIN,INDIRECT 0.5 mg/dl (0-1.1); BILIRUBIN,TOTAL 0.5 mg/dl (0.2-1.3); BLOOD UREA NITROGEN 4 mg/dl (7-20); CALCIUM 7.4 mg/dl (8.4-10.2); CARBON DIOXIDE 26 mmol/L (21-31); CHLORIDE 107 mmol/L (97-110); CREATININE 0.57 mg/dl (0.61-1.24); GLUCOSE 91 mg/dl (70-220); INR 1.59; PROTIME 19.3 Sec (11.9-14.9); PT RATIO 1.5; SODIUM 138 mmol/L (135-144); TOTAL PROTEIN 5.1 g/dl (6.1-8.1)
[2018-02-28 06:15] LABS: PARTIAL THROMBOPLASTIN TIME 39.9 Sec (23.0-35.0)
[2018-02-28] MEDS: PANTOPRAZOLE SODIUM 20 MG TABEC PO (08:08)
[2018-02-28] MEDS: FERROUS SULFATE (EC) 325 MG TAB PO (08:08)
[2018-02-28] MEDS: METOPROLOL (XL) 25 MG TAB PO (08:08)
[2018-02-28] MEDS: HYDROCODONE/APAP (5/325) TAB PO (15:14)
[2018-02-28] MEDS: SOD FERRIC GLUC COMPLX 125 MG in SOD CHLORIDE 0.9% 100 ML IVPB (17:22)
[2018-02-28] MEDS: TAMSULOSIN (SR) 0.4 MG CAP PO (20:27)
[2018-03-01] MEDS: D5W-0.45 NACL + KCL 20 MEQ 1,000 ML IV ×2 (01:32→11:47)
[2018-03-01] MEDS: CIPROFLOXACIN 500 MG TAB PO (05:45)
[2018-03-01 06:07] LABS: ADD MAN DIFF? NO
[2018-03-01 06:09] LABS: WHITE BLOOD COUNT 5.4 10^3/ul (4.8-10.8)
[2018-03-01 06:09] LABS: ABNORMAL IP MESSAGE 1; BASOPHILS % 0.6 % (0.0-2.0); EOSINOPHILS # 0.1 10^3/ul (0.0-0.5); EOSINOPHILS % 2.2 % (0.0-7.0); HEMATOCRIT 25.8 % (42.0-52.0); LYMPHOCYTES # 0.3 10^3/ul (0.8-2.9); LYMPHOCYTES % 4.6 % (15.0-51.0); MEAN CORPUSCULAR HEMOGLOBIN 28.7 pg (29.0-33.0); MEAN CORPUSCULAR VOLUME 92.5 fl (82.0-101.0); MEAN PLATELET VOLUME 13.6 fl (7.4-10.4); MONOCYTE # 0.5 10^3/ul (0.3-0.9); MONOCYTES % 8.3 % (0.0-11.0); NEUTROPHIL # 4.6 10^3/ul (1.6-7.5); NEUTROPHILS % 83.9 % (39.0-77.0); PLATELET COUNT 45 10^3/UL (140-415); POSITIVE DIFF @See below; RED BLOOD COUNT 2.79 10^6/ul (4.70-6.10)
[2018-03-01 06:37] LABS: ANION GAP 7 (8-16); BLOOD UREA NITROGEN 3 mg/dl (7-20); CALCIUM 7.3 mg/dl (8.4-10.2); CARBON DIOXIDE 26 mmol/L (21-31); CHLORIDE 107 mmol/L (97-110); CREATININE 0.58 mg/dl (0.61-1.24); GLUCOSE 85 mg/dl (70-220); POTASSIUM 4.1 mmol/L (3.5-5.1); SODIUM 136 mmol/L (135-144)
[2018-03-01] MEDS: FERROUS SULFATE (EC) 325 MG TAB PO (08:01)
[2018-03-01] MEDS: PANTOPRAZOLE SODIUM 20 MG TABEC PO (08:01)
[2018-03-01] MEDS: METOPROLOL (XL) 25 MG TAB PO (08:10)
== END 2018-03-01 17:39 | disposition home or self-care (01) | DRG 326 ==
LOC: PP2 02-20 14:22 → E/R 09:04 → TEL 10:36
PROC: 0D968ZZ Drainage of Stomach, Via Natural or Artificial Opening Endoscopic (ICD-10-PCS; principal; 2018-02-18 16:08)
PROC: 30233N1 Transfusion of Nonautologous Red Blood Cells into Peripheral Vein, Percutaneous Approach (ICD-10-PCS; 2018-02-18 16:08)
PROC: 30233K1 Transfusion of Nonautologous Frozen Plasma into Peripheral Vein, Percutaneous Approach (ICD-10-PCS; 2018-02-18 16:08)
PROC: 30233R1 Transfusion of Nonautologous Platelets into Peripheral Vein, Percutaneous Approach (ICD-10-PCS; 2018-02-18 16:08)
DX: C16.9 Malignant neoplasm of stomach, unspecified (principal); I21.A1 Myocardial infarction type 2; I82.221 Chronic embolism and thrombosis of inferior vena cava; I82.622 Acute embolism and thrombosis of deep veins of left upper extremity; K92.1 Melena; D62 Acute posthemorrhagic anemia; E87.2 Acidosis; E87.1 Hypo-osmolality and hyponatremia; N39.0 Urinary tract infection, site not specified; D68.32 Hemorrhagic disorder due to extrinsic circulating anticoagulants; I82.211 Chronic embolism and thrombosis of superior vena cava; D68.59 Other primary thrombophilia; C78.6 Secondary malignant neoplasm of retroperitoneum and peritoneum; D69.6 Thrombocytopenia, unspecified; D63.0 Anemia in neoplastic disease; E86.0 Dehydration; R55 Syncope and collapse; I08.1 Rheumatic disorders of both mitral and tricuspid valves; I10 Essential (primary) hypertension; R41.82 Altered mental status, unspecified; T45.515A Adverse effect of anticoagulants, initial encounter; Z95.828 Presence of other vascular implants and grafts; Z86.718 Personal history of other venous thrombosis and embolism; Z86.73 Personal history of transient ischemic attack (TIA), and cerebral infarction without residual deficits
CPT/HCPCS: 36415; 36430; 70450; 71045; 74018; 80048; 80053; 80076; 80202; 81001; 81003; 82150; 82607; 82746; 83010; 83605; 83615; 83880; 84145; 84443; 84484; 85014; 85018; 85025; 85610; 85730; 86430; 86644; 86850; 86900; 86901; 86920; 87040; 87081; 87086; 93005; 93306; 93971; 99291-25